=== PATIENT | female | born 1960 | race Caucasian/White ===

== ENCOUNTER → 2016-06-16 | Outpatient (CLI) | payer MEDICARE ==
[~2016-06-16] MED LIST: CELEXA20 MG PO; CLARITIN10 MG PO; HYDROXYZINE HCL25 MG PO; LEVOTHYROXINE PO; LISINOPRIL20 MG PO; NEURONTIN 300300 MG PO; PREVACID30 MG PO; TENORMIN 50 MG50 MG PO; TRAMADOL HCL50 MG PO; VENTOLIN INH; ZYLOPRIM 100 M100 MG PO
== END ==
LOC: MAMO 10:17
DX: Z12.31 Encounter for screening mammogram for malignant neoplasm of breast (principal); Z90.710 Acquired absence of both cervix and uterus
CPT/HCPCS: G0202

== ENCOUNTER 2016-07-01 18:08 | Emergency (ER) | payer MEDICARE | END 2016-07-01 20:30 | disposition left against medical advice (07) | LOC: ER1 18:08 | DX: Z53.21 Procedure and treatment not carried out due to patient leaving prior to being seen by health care provider (principal) ==

== ENCOUNTER → 2020-02-21 | Outpatient (CLI) | payer OTHER ==
[~2020-02-21] MED LIST changes: +ALBUTEROL2.5 MG/3 M INH; +ASPIRIN EC81 MG PO; +AZELASTINE137 MCG/0.; +CALCIPOTRIENE120 G1 TOP; +CAPSAICIN42.5 GM TP; +DESYREL 50 MG T50 MG PO; +FLONASE 0.05% N16 GM; +KENALOG OINT 0.15 GM TOP; +LEVOTHYROXINE112 MCG PO; +LOPRESSOR 50 MG50 MG PO; +METHOCARBAMOL500 MG PO; +MONTELUKAST SOD10 MG PO; +MUCINEX600 MG PO; +OCUVITE ADULT1 EAC1 PO; +RISPERIDONE0.5 MG PO; +SYMBICORT 16010.2 GM INH; +VITAMIN B-121000 MC3 PO; +VITAMIN D21250 MCG PO; +ZYLOPRIM 300 M300 MG PO
== END ==
LOC: LAB 10:07
PROVIDERS: Internal Medicine Nephrology
DX: N18.30 Chronic kidney disease, stage 3 unspecified (principal); M10.9 Gout, unspecified; E03.9 Hypothyroidism, unspecified
CPT/HCPCS: 36415; 80053; 82570; 84156; 84443; 84550

== ENCOUNTER → 2020-02-26 | Day surgery (SDC) | payer OTHER ==
[~2020-02-26] VITALS: Ht 162.6 cm; Wt 119.7 kg
== END | disposition home or self-care (01) ==
LOC: OR 07:00
PROVIDERS: Internal Medicine Gastroenterology
PROC: 0DB78ZX Excision of Stomach, Pylorus, Via Natural or Artificial Opening Endoscopic, Diagnostic (ICD-10-PCS; principal; 2020-02-26 09:30)
DX: K75.81 Nonalcoholic steatohepatitis (NASH) (principal); I85.10 Secondary esophageal varices without bleeding; K29.50 Unspecified chronic gastritis without bleeding; K31.89 Other diseases of stomach and duodenum; I10 Essential (primary) hypertension; E78.5 Hyperlipidemia, unspecified; J45.909 Unspecified asthma, uncomplicated; E66.01 Morbid (severe) obesity due to excess calories; M79.7 Fibromyalgia; M10.9 Gout, unspecified; E03.9 Hypothyroidism, unspecified; Z88.2 Allergy status to sulfonamides; Z79.82 Long term (current) use of aspirin; Z79.899 Other long term (current) drug therapy; Z98.890 Other specified postprocedural states; Z20.828 Contact with and (suspected) exposure to other viral communicable diseases
CPT/HCPCS: J2704; J3010; J7040

== ENCOUNTER → 2020-03-14 | Outpatient (CLI) | payer OTHER ==
[2020-03-15 08:13] LABS: THYROXINE (T4) 9.8 ug/dL (4.5-12.0)
== END ==
LOC: LAB 12:59
PROVIDERS: Internal Medicine Gastroenterology
DX: E03.9 Hypothyroidism, unspecified (principal); R74.8 Abnormal levels of other serum enzymes
CPT/HCPCS: 36415; 80076; 82103; 82728; 83540; 83550; 84436; 84443; 84480

== ENCOUNTER → 2020-06-24 | Outpatient (CLI) | payer OTHER | LOC: LAB 12:14 | PROVIDERS: Internal Medicine Nephrology | DX: N18.30 Chronic kidney disease, stage 3 unspecified (principal) | CPT/HCPCS: 36415; 80053; 82570; 84156; 84550 ==

== ENCOUNTER 2020-10-20 16:07 | Emergency (ER) | payer OTHER | END 2020-10-20 21:55 | disposition home or self-care (01) | LOC: ER1 16:07 | DX: U07.1 COVID-19 (principal); I10 Essential (primary) hypertension; E03.9 Hypothyroidism, unspecified; J44.9 Chronic obstructive pulmonary disease, unspecified; Z90.49 Acquired absence of other specified parts of digestive tract; Z90.89 Acquired absence of other organs; Z90.710 Acquired absence of both cervix and uterus; Z88.1 Allergy status to other antibiotic agents | CPT/HCPCS: 71045; 99283 ==

== ENCOUNTER → 2020-12-08 | Outpatient (CLI) | payer OTHER | LOC: LAB 10:06 | PROVIDERS: Internal Medicine Nephrology | DX: N18.30 Chronic kidney disease, stage 3 unspecified (principal) | CPT/HCPCS: 36415; 80053; 82570; 84156; 84550 ==

== ENCOUNTER → 2021-03-25 | Outpatient (CLI) | payer OTHER | LOC: MAMO 14:49 | DX: Z12.31 Encounter for screening mammogram for malignant neoplasm of breast (principal) | CPT/HCPCS: 77063; 77067 ==

== ENCOUNTER → 2021-04-08 | Outpatient (CLI) | payer OTHER | LOC: LAB 13:14 | PROVIDERS: Internal Medicine Nephrology | DX: N18.31 Chronic kidney disease, stage 3a (principal) | CPT/HCPCS: 36415; 80053; 82570; 84156 ==

== ENCOUNTER → 2021-08-31 | Outpatient (CLI) | payer MEDICARE | LOC: HEART 5 13:48 | DX: J45.909 Unspecified asthma, uncomplicated (principal) | CPT/HCPCS: 94060; 94729 ==